=== PATIENT | male | born 1975 | race Caucasian/White ===

== ENCOUNTER 2017-02-09 17:08 | Emergency (ER) | payer SELFPAY ==
[~2017-02-09] VITALS: Ht 170.2 cm; Wt 65.0 kg
[2017-02-09 17:12] VITALS: BP 125/92
[2017-02-09] MEDS ORDERED: EPSICON (17:16)
[2017-02-09] MEDS ORDERED: ATAZ300C PO (17:16)
[2017-02-09] MEDS ORDERED: DESV50TA4 PO (17:16)
[2017-02-09] MEDS ORDERED: LAM25 PO (17:16)
== END 2017-02-10 00:30 | disposition left against medical advice (07) ==
LOC: ER 17:18
DX: F41.9 Anxiety disorder, unspecified (principal); Z53.21 Procedure and treatment not carried out due to patient leaving prior to being seen by health care provider